=== PATIENT | female | born 1940 | race Caucasian/White ===

== ENCOUNTER → 2017-09-16 | Outpatient (REF) ==
[~2017-09-16] MED LIST: ASPIRIN 81M81 MG/TA2 PO; BENTYL 20MG20 MG/TAB PO; CALCIUM600 MG PO; CARDI-OMEGA1000 MG PO; LORTAB 5/500 501 TAB PO; MULTIPLE VITAMI1 CAP PO; PRINZIDE 12.5 M1 TA1 PO; VITAMIN C500 MG PO; VITAMIN D32000 I1 PO; ZOCOR 20MG20 MG PO
== END ==
LOC: ZLAB.WCH 09:19
DX: Z01.89 Encounter for other specified special examinations (principal)

== ENCOUNTER → 2020-10-14 | Outpatient (CLI) | payer MEDICARE | LOC: COL.RAD 12:59 | DX: M48.061 Spinal stenosis, lumbar region without neurogenic claudication (principal); M51.16 Intervertebral disc disorders with radiculopathy, lumbar region; M47.816 Spondylosis without myelopathy or radiculopathy, lumbar region ==

== ENCOUNTER → 2020-10-30 | Outpatient (CLI) | payer MEDICARE | LOC: MHCPAIN 14:13 | DX: M47.817 Spondylosis without myelopathy or radiculopathy, lumbosacral region (principal); M54.5 Low back pain; M25.552 Pain in left hip | CPT/HCPCS: G0463 ==